=== PATIENT | female | born 1940 | race African-American/Black ===

== ENCOUNTER 2017-05-12 10:59 | Emergency (ER) | payer MEDICARE, MEDICAID ==
[~2017-05-12] VITALS: Ht 162.6 cm; Wt 61.0 kg
[2017-05-12 11:08] VITALS: BP 168/82
== END 2017-05-12 13:48 | disposition home or self-care (01) ==
LOC: ER 12:31
DX: M19.041 Primary osteoarthritis, right hand (principal); F17.200 Nicotine dependence, unspecified, uncomplicated; E78.00 Pure hypercholesterolemia, unspecified; Z86.73 Personal history of transient ischemic attack (TIA), and cerebral infarction without residual deficits
CPT/HCPCS: 73130; 99284

== ENCOUNTER 2021-11-04 22:04 | Inpatient (IN) | payer MEDICARE, MEDICAID ==
[~2021-11-04] VITALS: Ht 162.6 cm; Wt 58.1 kg
[2021-11-04] MEDS ORDERED: NITROGLYCERIN 50MG PREMIX 250 ML IV ONE (22:15)
[2021-11-04] MEDS ORDERED: NITROGLYCERIN 50MG PREMIX 250 ML IV NR (22:15)
[2021-11-04 22:41] LABS: BASOPHILS % 0.9 % (0.0-2.0); EOSINOPHILS % 10.1 % (0.0-5.0); HEMATOCRIT. 40.2 % (36.0-48.0); HEMOGLOBIN. 13.1 g/dL (12.0-16.0); MEAN CORPUSCULAR HEMOGLOBIN 29.1 pg (28.0-32.0); MEAN CORPUSCULAR VOLUME 88.9 fL (81.0-99.0); MONOCYTES % 9.6 % (2.0-8.0); NEUTROPHILS % 36.4 % (40.0-76.0); RED BLOOD CELL COUNT 4.52 mill/uL (4.2-5.4); RED CELL DISTRIBUTION WIDTH 14.8 % (11.6-14.6)
[2021-11-04 22:50] LABS: CHLORIDE 114 mEq/L (98-107)
[2021-11-04 23:11] LABS: MEAN PLATELET VOLUME 11.9 fl (7.4-10.4); PLATELET 140 x1000/uL (130-400)
[2021-11-04 23:28] LABS: BG BASE EXCESS -0.3 mmol/L (-2.0-2.0); BG CARBOXYHEMOGLOBIN 0.1 % (0.5-1.5); BG DEOXYHEMOGLOBIN 3.9 % (0.0-5.0); BG FRACTION INSPIRED OXYGEN 30; BG HCO3 ACT 23.6 mmol/L (22.0-26.0); BG METHEMOGLOBIN 0.3 % (0.0-1.5); BG OXYGEN SATURATION 96.1 % (92.0-98.5); BG OXYHEMOGLOBIN 95.7 % (94.0-97.0); BG PCO2 36.1 mmHg (35.0-45.0); BG PH 7.433 (7.350-7.450); BG PO2 81.6 mmHg (75.0-100.0); BG SAMPLE SITE RIGHT RADIAL; BG TOTAL HEMOGLOBIN 11.7 g/dL (12.0-18.0); BG VENT MODE MASK - BIPAP
[2021-11-05] MEDS ORDERED: ACETAMINOPHEN 325MG TABLET PO PRN ×2 (01:15)
[2021-11-05] MEDS ORDERED: ACETAMINOPHEN 650MG SUPP PR PRN (01:15)
[2021-11-05] MEDS ORDERED: DOCUSATE SODIUM 100MG CAPSULE PO PRN (01:15)
[2021-11-05] MEDS ORDERED: MAGNESIUM/ALUMINUM HYDROXIDE/SIMETHICONE 30ML UDC PO PRN (01:15)
[2021-11-05] MEDS ORDERED: IPRATROPIUM/ALBUTEROL 0.5-3(2.5)MG/3ML NEB HHN PRN (01:15)
[2021-11-05] MEDS ORDERED: ONDANSETRON HCL 4MG/2ML INJ IV PRN (01:15)
[2021-11-05] MEDS ORDERED: GUAIFENESIN 200MG/10ML SUGAR FREE UDC PO PRN (01:15)
[2021-11-05] MEDS ORDERED: ENALAPRIL 2.5MG/2ML VIAL 2ML IV SCH (03:15)
[2021-11-05] MEDS ORDERED: ENALAPRIL 1.25MG/ML VIAL 1ML IV SCH (06:45)
[2021-11-05] MEDS: CLONIDINE 0.1MG TABLET PO PRN ×2 (08:36→14:53)
[2021-11-05] MEDS: ENOXAPARIN 30MG/0.3ML SYR SUBCUT SCH (08:55)
[2021-11-05] MEDS ORDERED: FUROSEMIDE 40MG/4ML VIAL IV SCH (09:00)
[2021-11-05] MEDS: FUROSEMIDE 40MG/4ML VIAL IV SCH (18:03)
[2021-11-05 21:39] LABS: BG BASE EXCESS 1.1 mmol/L (-2.0-2.0); BG CARBOXYHEMOGLOBIN 0.2 % (0.5-1.5); BG DEOXYHEMOGLOBIN 2.8 % (0.0-5.0); BG FRACTION INSPIRED OXYGEN 30; BG HCO3 ACT 25.1 mmol/L (22.0-26.0); BG METHEMOGLOBIN 0.2 % (0.0-1.5); BG OXYGEN SATURATION 97.2 % (92.0-98.5); BG OXYHEMOGLOBIN 96.8 % (94.0-97.0); BG PCO2 38.1 mmHg (35.0-45.0); BG PH 7.437 (7.350-7.450); BG PO2 93.3 mmHg (75.0-100.0); BG SAMPLE SITE LEFT RADIAL; BG TOTAL HEMOGLOBIN 12.9 g/dL (12.0-18.0); BG VENT MODE NASAL CANNULA
[2021-11-05 22:00] VITALS: BP 159/81
[2021-11-05] MEDS: AMLODIPINE 5MG TABLET PO SCH (22:14)
[2021-11-06] VITALS: BP 147/80
[2021-11-06] MEDS ORDERED: CLOP75TA33 PO (00:46)
[2021-11-06] MEDS ORDERED: HYDR12.54 PO (00:46)
[2021-11-06] MEDS ORDERED: SIMV-46 PO (00:46)
[2021-11-06] MEDS ORDERED: CLON0.1T PO (00:46)
[2021-11-06] MEDS ORDERED: LOSA100T32 PO (00:46)
[2021-11-06] MEDS ORDERED: AMLO10TA80 PO (00:46)
[2021-11-06 04:15] VITALS: BP 166/83
[2021-11-06] MEDS: CLONIDINE 0.1MG TABLET PO PRN (04:18)
[2021-11-06 07:27] LABS: BASOPHILS % 0.4 % (0.0-2.0); EOSINOPHILS % 11.4 % (0.0-5.0); HEMATOCRIT. 32.8 % (36.0-48.0); HEMOGLOBIN. 11.1 g/dL (12.0-16.0); LYMPHOCYTES % 31.5 % (20.0-50.0); MEAN CORPUSCULAR HEMOGLOBIN 29.5 pg (28.0-32.0); MEAN CORPUSCULAR VOLUME 87.5 fL (81.0-99.0); MEAN PLATELET VOLUME 11.3 fl (7.4-10.4); MONOCYTES % 8.5 % (2.0-8.0); NEUTROPHILS % 48.2 % (40.0-76.0); PLATELET 115 x1000/uL (130-400); RED BLOOD CELL COUNT 3.75 mill/uL (4.2-5.4); RED CELL DISTRIBUTION WIDTH 14.8 % (11.6-14.6)
[2021-11-06 07:35] LABS: CHLORIDE 110 mEq/L (98-107)
[2021-11-06] MEDS: IPRATROPIUM/ALBUTEROL 0.5-3(2.5)MG/3ML NEB HHN SCH ×3 (07:35→20:16)
[2021-11-06 07:48] LABS: HDL CHOLESTEROL 38 mg/dL (40-59); LDL CHOLESTEROL 117 mg/dL (5-100)
[2021-11-06 08:15] VITALS: BP 131/72
[2021-11-06] MEDS: ENOXAPARIN 30MG/0.3ML SYR SUBCUT SCH (08:59)
[2021-11-06] MEDS: FUROSEMIDE 40MG/4ML VIAL IV SCH ×2 (09:00→18:17)
[2021-11-06] MEDS: HYDRALAZINE HCL 10MG TABLET PO SCH ×2 (09:01→21:49)
[2021-11-06] MEDS: AMLODIPINE 5MG TABLET PO SCH ×2 (09:01→21:49)
[2021-11-06 12:15] VITALS: BP 132/62
[2021-11-06 16:15] VITALS: BP 123/59
[2021-11-06 20:00] VITALS: BP 160/68
[2021-11-06] MEDS: ATORVASTATIN CALCIUM 10MG TABLET PO SCH (21:49)
[2021-11-07] VITALS (7 sets, daily range): BP systolic 141–177; BP diastolic 74–91
[2021-11-07] MEDS: IPRATROPIUM/ALBUTEROL 0.5-3(2.5)MG/3ML NEB HHN SCH ×2 (01:58→20:33)
[2021-11-07] MEDS: CLONIDINE 0.1MG TABLET PO PRN ×2 (04:49→23:36)
[2021-11-07 09:26] LABS: BASOPHILS % 0.4 % (0.0-2.0); EOSINOPHILS % 10.2 % (0.0-5.0); LYMPHOCYTES % 23.9 % (20.0-50.0); MEAN CORPUSCULAR HEMOGLOBIN 28.7 pg (28.0-32.0); MEAN CORPUSCULAR VOLUME 88.5 fL (81.0-99.0); MEAN PLATELET VOLUME 11.7 fl (7.4-10.4); MONOCYTES % 7.3 % (2.0-8.0); NEUTROPHILS % 58.2 % (40.0-76.0); PLATELET 139 x1000/uL (130-400); RED BLOOD CELL COUNT 4.18 mill/uL (4.2-5.4); RED CELL DISTRIBUTION WIDTH 14.8 % (11.6-14.6)
[2021-11-07] MEDS: FUROSEMIDE 40MG/4ML VIAL IV SCH (09:47)
[2021-11-07] MEDS: ENOXAPARIN 30MG/0.3ML SYR SUBCUT SCH (09:47)
[2021-11-07] MEDS: AMLODIPINE 5MG TABLET PO SCH ×2 (09:47→20:43)
[2021-11-07] MEDS: HYDRALAZINE HCL 25MG TABLET PO SCH ×2 (09:48→20:43)
[2021-11-07] MEDS: ATORVASTATIN CALCIUM 10MG TABLET PO SCH (20:43)
[2021-11-08] MEDS: IPRATROPIUM/ALBUTEROL 0.5-3(2.5)MG/3ML NEB HHN SCH ×3 (02:19→13:59)
[2021-11-08 04:00] VITALS: BP 136/69
[2021-11-08 06:27] LABS: BASOPHILS % 0.5 % (0.0-2.0); EOSINOPHILS % 11.1 % (0.0-5.0); HEMATOCRIT. 37.6 % (36.0-48.0); HEMOGLOBIN. 12.9 g/dL (12.0-16.0); LYMPHOCYTES % 28.4 % (20.0-50.0); MEAN CORPUSCULAR HEMOGLOBIN 30.1 pg (28.0-32.0); MEAN CORPUSCULAR VOLUME 87.4 fL (81.0-99.0); MEAN PLATELET VOLUME 11.7 fl (7.4-10.4); PLATELET 140 x1000/uL (130-400); RED CELL DISTRIBUTION WIDTH 14.8 % (11.6-14.6)
[2021-11-08 08:00] VITALS: BP 147/82
[2021-11-08] MEDS: FUROSEMIDE 40MG/4ML VIAL IV SCH (08:49)
[2021-11-08] MEDS: HYDRALAZINE HCL 25MG TABLET PO SCH (08:49)
[2021-11-08] MEDS: AMLODIPINE 5MG TABLET PO SCH (08:49)
[2021-11-08] MEDS: ENOXAPARIN 30MG/0.3ML SYR SUBCUT SCH (08:50)
[2021-11-08 12:00] VITALS: BP 138/71
[2021-11-08] MEDS ORDERED: HYDR-4134 PO (13:56)
[2021-11-08] MEDS ORDERED: AMLO5TAB88 MT (13:56)
[2021-11-08] MEDS ORDERED: FURO20TA4 PO (13:56)
[2021-11-08] MEDS ORDERED: AMLO5TAB88 PO (13:56)
[2021-11-08 15:00] VITALS: BP 142/79
[2021-11-08 16:00] VITALS: BP 142/72
[2021-11-09] MEDS ORDERED: FUROSEMIDE 20MG TABLET PO SCH (09:00)
== END 2021-11-08 19:17 | disposition home health service (06) | DRG 194 ==
LOC: ER 22:04 → MICUSO 11-05 00:14 → 6WST 11-05 20:11
PROVIDERS: ADMIT Family Medicine Adult Medicine; ATTEND Family Medicine Adult Medicine
PROC: 5A09357 Assistance with Respiratory Ventilation, Less than 24 Consecutive Hours, Continuous Positive Airway Pressure (ICD-10-PCS; principal; 2021-11-04)
DX: I13.0 Hypertensive heart and chronic kidney disease with heart failure and stage 1 through stage 4 chronic kidney disease, or unspecified chronic kidney disease (principal); J96.01 Acute respiratory failure with hypoxia; N17.9 Acute kidney failure, unspecified; I50.31 Acute diastolic (congestive) heart failure; E78.00 Pure hypercholesterolemia, unspecified; E78.5 Hyperlipidemia, unspecified; J44.9 Chronic obstructive pulmonary disease, unspecified; N18.9 Chronic kidney disease, unspecified; R77.8 Other specified abnormalities of plasma proteins; Z20.822 Contact with and (suspected) exposure to COVID-19; Z86.73 Personal history of transient ischemic attack (TIA), and cerebral infarction without residual deficits; Z79.1 Long term (current) use of non-steroidal anti-inflammatories (NSAID); Z79.899 Other long term (current) drug therapy; Z87.891 Personal history of nicotine dependence
CPT/HCPCS: 36415; 36600; 71045; 80048; 80053; 80061; 82375; 82550; 82805; 83605; 83735; 83880; 84145; 84443; 84484; 85025; 87426; 93005; 93306; 94640; 94660; 97162; 97166; 99285; J1650; J1940; J3490